=== PATIENT | male | born 1990 | race Caucasian/White ===

== ENCOUNTER 2021-04-25 19:05 | Emergency (ER) | payer MEDICAID, SELFPAY ==
[2021-04-25 19:06] VITALS: BP 142/100; PULSE 138; RESP 20; TEMP 35.9; O2SAT 97; BMI 27.8
--- NOTE | 2021-04-25 21:57 | EX.ED.DYSGE1 ---
HPI <Dr. Chris Monahan MD - Last Filed: 05/02/21 15:10> History of Present Illness Chief Complaint: GI Bleed Informant: patient Narrative Narrative: It is rather difficult getting details of the history from the patient. It takes multiple questions over time. He and his mother look back and forth and there appears to be something that they do not want to share with me or may be that one wants to share in the other does not. Primary reason for coming in is that he vomited blood today. They also want detox for heroin. Patient states he is trying to detox at home. He so he started nausea and vomiting. He vomited about 7 times last night. He did not see any blood but is not 100% sure. Today he drank milk over at his parents house. After drinking half a gallon of milk he vomited. Most of this came out as milk and curds. At the end there was bright red blood. That happened approximately 10 hours ago. There has not been another case of vomiting. He is not having abdominal pain. He does have a history of prior Celina-White tear. However, he also sounds like he may have had a transfusion. I do not know the details of this. PFSH <Dr. Chris Monahan MD - Last Filed: 05/02/21 15:10> [facility] Medical History Drug abuse Home Medications NK 04/25/21 [History Last Taken Unknown] Allergy/AdvReac Type Severity Reaction Status Date / Time No Known Allergies Allergy Verified 04/25/21 19:08 Surgical History Hx of hernia repair Surgical History no surgical history Social History Smoking Status: Unknown if ever smoked ROS <Dr. Chris Monahan MD - Last Filed: 05/02/21 15:10> ROS ED Constitutional Constitutional ED: Denies fever(s) Eyes Eyes: Denies blurry vision ENT ENT ED: Denies rhinorrhea Cardiovascular Cardiovascular: Denies chest pain or palpitations Respiratory/Chest Respiratory/Chest: Denies cough or dyspnea Gastrointestinal Gastrointestinal: Reports nausea and vomiting; Denies abdominal pain, constipation, diarrhea or melena Genitourinary Genitourinary ED: Denies dysuria Musculoskeletal Musculoskeletal: Denies arthralgias Integumentary Denies rash Neurologic Neurologic: Denies headache(s) or weakness Endocrine Endocrinology: Denies polydipsia or polyuria Allergic/Immunologic Allergic/Immunologic ED: Denies urticaria EXAM <Dr. Chris Monahan MD - Last Filed: 05/02/21 15:10> Physical Exam Const Vital Signs: 04/25/21 19:06 04/26/21 04:14 Temperature 96.7 F L Temperature Source Temporal Pulse Rate 138 H Respiratory Rate 20 H 16 Blood Pressure 142/100 H Blood Pressure Mean 114 Pulse Ox 97 Oxygen Delivery Method Room Air Room Air Positive well nourished and well developed General Appearance ED: well developed and NAD; Negative for cyanotic, diaphoretic or pallor HEENT Reports moist mucous membranes HEENT Narrative: No sign of intraoral bleeding. Eyes General Eye ED: Negative for pale conjunctiva or scleral icterus Neck no lymphadenopathy and no JVD Chest Wall inspection of chest normal Resp normal respiratory effort and clear to auscultation bilaterally Effort and Inspection: Negative for pain with movement Auscultation: Negative for rales, rhonchi or wheezes Cardio regular rhythm Rate: tachycardic GI normal to inspection, nondistended, normoactive bowel sounds, non-tender and non-distended Palpation: soft Back/Spine no CVA tenderness Extremity normal to inspection General Extremety ED: Negative for tenderness Neuro oriented x3 Sensorium / Orientation: alert Psych mental status grossly normal Skin no rashes or lesions noted General Skin Exam: Negative for pallor <Dr. North Barry MD - Last Filed: 04/26/21 04:35> Physical Exam Const Vital Signs: 04/25/21 19:06 04/26/21 04:14 Temperature 96.7 F L Temperature Source Temporal Pulse Rate 138 H Respiratory Rate 20 H 16 Blood Pressure 142/100 H Blood Pressure Mean 114 Pulse Ox 97 Oxygen Delivery Method Room Air Room Air MDM <Dr. Chris Monahan MD - Last Filed: 05/02/21 15:10> [facility] Narrative Medical decision making narrative: Are seeing the patient, the mother explained to the nurse that she is concerned about his safety. There is evidently been statements about suicide although these are not elaborated on. Patient is denying this at this time. However, he is not making great eye contact. So were concerned this might be true. Yet mother also wants him to be admitted so we do not know if this is another way to get him admitted for his detox. The entire story seems to have variability. However, we are concerned. We will have crisis see this patient. His blood work shows normal hemoglobin. He has not had recurrent vomiting. Electrolytes are overall normal. BUN is just slightly elevated. However he has been given fluids. LFTs are up a bit. Lipase is normal. Patient likely did have slight Celina-White tear. He had one episode of hematemesis. He has been given pantoprazole. His symptoms seem better. I do not have detox bed available for him. At this point, he does not need admission for medical reasons. We will have crisis see him and make final evaluation regarding these possible suicidal thoughts. Alcohol level is negative. Tox screen is still pending. Lab Data Attestation: I reviewed the patient's lab results. Labs: Laboratory Results - last 24 hr 04/25/21 04/25/21 04/26/21 22:14 22:14 00:11 WBC 9.5 RBC 5.17 Hgb 15.3 Hct 45.0 MCV 87.0 MCH 29.6 MCHC 34.0 RDW Std Deviation 39.1 RDW Coeff of Vidal 12.1 Plt Count 269 MPV 9.2 Immature Gran % (Auto) 0.200 Neut % (Auto) 57.8 Lymph % (Auto) 29.0 [place] % (Auto) 11.1 H Eos % (Auto) 1.5 Baso % (Auto) 0.4 Absolute Neuts (auto) 5.5 Absolute Lymphs (auto) 2.75 Nucleated RBC % 0 Sodium 138 Potassium 3.6 Chloride 103 Carbon Dioxide 27.0 Anion Gap 8 BUN 22 H Creatinine 0.90 Estim Creat Clear Calc 130.15 Est GFR (MDRD) Af Amer 128 Est GFR (MDRD) Non-Af 105 BUN/Creatinine Ratio 24.3 H Glucose 104 Calcium 9.6 Total Bilirubin 1.40 H AST 98 H ALT 209 H Alkaline Phosphatase 128 H Total Protein 7.6 Albumin 3.6 Globulin 4.0 Albumin/Globulin Ratio 0.9 Lipase 33 L Urine Opiates Screen Urine Methadone Screen Ur Barbiturates Screen Ur Phencyclidine Scrn Ur Amphetamines Screen U Methamphetamin-MDMA U Benzodiazepines Scrn Urine Cocaine Screen U Cannabinoids Screen Ur Drug Screen Comment Ethyl Alcohol < 3.0 04/26/21 01:56 WBC RBC Hgb Hct MCV MCH MCHC RDW Std Deviation RDW Coeff of [place] Plt Count MPV Immature Gran % (Auto) Neut % (Auto) Lymph % (Auto) [place] % (Auto) Eos % (Auto) Baso % (Auto) Absolute Neuts (auto) Absolute Lymphs (auto) Nucleated RBC % Sodium Potassium Chloride Carbon Dioxide Anion Gap BUN Creatinine Estim Creat Clear Calc Est GFR (MDRD) Af Amer Est GFR (MDRD) Non-Af BUN/Creatinine Ratio Glucose Calcium Total Bilirubin AST ALT Alkaline Phosphatase Total Protein Albumin Globulin Albumin/Globulin Ratio Lipase Urine Opiates Screen POSITIVE H Urine Methadone Screen NEGATIVE Ur Barbiturates Screen NEGATIVE Ur Phencyclidine Scrn NEGATIVE Ur Amphetamines Screen POSITIVE H U Methamphetamin-MDMA POSITIVE H U Benzodiazepines Scrn NEGATIVE Urine Cocaine Screen POSITIVE H U Cannabinoids Screen POSITIVE H Ur Drug Screen Comment Ethyl Alcohol <Dr. [place] Barry MD - Last Filed: 04/26/21 04:35> [facility] Lab Data Labs: Laboratory Results - last 24 hr 04/25/21 04/25/21 04/26/21 22:14 22:14 00:11 WBC 9.5 RBC 5.17 Hgb 15.3 Hct 45.0 MCV 87.0 MCH 29.6 MCHC 34.0 RDW Std Deviation 39.1 RDW Coeff of [place] 12.1 Plt Count 269 MPV 9.2 Immature Gran % (Auto) 0.200 Neut % (Auto) 57.8 Lymph % (Auto) 29.0 [place] % (Auto) 11.1 H Eos % (Auto) 1.5 Baso % (Auto) 0.4 Absolute Neuts (auto) 5.5 Absolute Lymphs (auto) 2.75 Nucleated RBC % 0 Sodium 138 Potassium 3.6 Chloride 103 Carbon Dioxide 27.0 Anion Gap 8 BUN 22 H Creatinine 0.90 Estim Creat Clear Calc 130.15 Est GFR (MDRD) Af Amer 128 Est GFR (MDRD) Non-Af 105 BUN/Creatinine Ratio 24.3 H Glucose 104 Calcium 9.6 Total Bilirubin 1.40 H AST 98 H ALT 209 H Alkaline Phosphatase 128 H Total Protein 7.6 Albumin 3.6 Globulin 4.0 Albumin/Globulin Ratio 0.9 Lipase 33 L Urine Opiates Screen Urine Methadone Screen Ur Barbiturates Screen Ur Phencyclidine Scrn Ur Amphetamines Screen U Methamphetamin-MDMA U Benzodiazepines Scrn Urine Cocaine Screen U Cannabinoids Screen Ur Drug Screen Comment Ethyl Alcohol < 3.0 04/26/21 01:56 WBC RBC Hgb Hct MCV MCH MCHC RDW Std Deviation RDW Coeff of [place] Plt Count MPV Immature Gran % (Auto) Neut % (Auto) Lymph % (Auto) [place] % (Auto) Eos % (Auto) Baso % (Auto) Absolute Neuts (auto) Absolute Lymphs (auto) Nucleated RBC % Sodium Potassium Chloride Carbon Dioxide Anion Gap BUN Creatinine Estim Creat Clear Calc Est GFR (MDRD) Af Amer Est GFR (MDRD) Non-Af BUN/Creatinine Ratio Glucose Calcium Total Bilirubin AST ALT Alkaline Phosphatase Total Protein Albumin Globulin Albumin/Globulin Ratio Lipase Urine Opiates Screen POSITIVE H Urine Methadone Screen NEGATIVE Ur Barbiturates Screen NEGATIVE Ur Phencyclidine Scrn NEGATIVE Ur Amphetamines Screen POSITIVE H U Methamphetamin-MDMA POSITIVE H U Benzodiazepines Scrn NEGATIVE Urine Cocaine Screen POSITIVE H U Cannabinoids Screen POSITIVE H Ur Drug Screen Comment Ethyl Alcohol Discharge Plan Triage Chief Complaint: GI Bleed ED Provider: Chris Monahan Dx/Rx/DC Orders Clinical Impression: Hematemesis, Opioid dependence, Suicidal thoughts Prescriptions: No Action NK RF: 0 Primary Care Provider: Care Physician,No Primary Referrals: Care Physician,No Primary [Primary Care Provider] - Disposition Disposition: Psychiatric Hospital or Unit Discharge Location: Other Acute Care Hospital Discharge Date/Time: 04/26/21 06:48
[2021-04-25 22:18] LABS: Absolute Lymphocyte Count 2.75 X10^3/uL (0.83-4.51); Absolute Neutrophil Count 5.5 X10^3/uL (2.0-7.7); Basophil# 0.04 X10^3/uL; Basophil% 0.4 % (0-1); Eosinophil# 0.14 X10^3/uL; Eosinophils% 1.5 % (0-5); Hemoglobin 15.3 g/dL (13.0-16.5); Lymphocyte # 2.75 X10^3/ul (0.83-4.51); Mean Corpuscular Hgb 29.6 pg (27.0-32.0); Mean Platelet Vol. 9.2 fl (6.2-12.0); Monocyte# 1.05 X10^3/uL; Monocyte% 11.1 % (0-10); NRBC Flagged by Analyzer 0 % (0-5); Neutrophil # 5.48 X10^3/uL (2.7-7.7); Neutrophil % 57.8 % (47-70); Platelet Count 269 K/mm3 (150-450); RBC Distribution Width CV 12.1 % (11.6-14.6); RBC Distribution Width SD 39.1 fl (35.1-43.9); Red Blood Count 5.17 M/mm3 (4.6-6.2); White Blood Count 9.5 K/mm3 (4.4-11.0)
[2021-04-25] MEDS: Ondansetron 4 MG/2 ML Vial IV (22:23)
[2021-04-25] MEDS: 0.9% Normal Saline 1,000 ML 1000 ML IV (22:23)
[2021-04-25 22:41] LABS: ALB/GLOB Ratio 0.9 RATIO (0.9-2.4); AST(SGOT) 98 U/L (15-37); Alanine Aminotransfer ALT/SGPT 209 U/L (16-61); Albumin, Serum 3.6 g/dL (3.2-5.0); Alkaline Phosphatase 128 U/L (45-117); Anion Gap 8 (5-15); BUN 22 mg/dL (7-18); BUN/Creat Ratio 24.3 RATIO (10-20); Calcium,Total 9.6 mg/dL (8.5-10.1); Chloride 103 mmol/L (98-107); EST Glomerular Filtration Rate 105 mL/min (>60); Est Glom Filt Rate - Afr Amer 128 mL/min (>60); Estimated Creatinine Clearance 130.15 ml/min; Glucose 104 mg/dL (74-106); Lipase 33 U/L (73-393); Potassium 3.6 mmol/L (3.5-5.1); Protein, Total 7.6 g/dL (6.4-8.2); Sodium Level 138 mmol/L (136-145)
[2021-04-26 00:50] LABS: Alcohol, Blood (Medical)-Serum < 3.0 mg/dL
[2021-04-26 02:25] LABS: Amphetamine Urine VISTA POSITIVE (<1000 ng/mL); Barbiturate Urine VISTA NEGATIVE (< 200 ng/mL); Benzodiazepine Urine VISTA NEGATIVE (< 200 ng/mL); Cocaine Urine VISTA POSITIVE (< 300 ng/mL); Ecstacy Urine VISTA POSITIVE (< 500 ng/mL); Methadone Urine VISTA NEGATIVE (< 300 ng/mL); PCP Urine VISTA NEGATIVE (< 25 ng/mL); THC Urine VISTA POSITIVE (< 50 ng/mL); Vista UDS pH Range 5
--- NOTE | 2021-04-26 02:26 | ED.RN ---
CALLED CRISIS SAID SHE WOULD BE IN AT 45 MINUTES
[2021-04-26 04:14] VITALS: RESP 16
--- NOTE | 2021-04-26 04:15 | ED.RN ---
crisis in to see patient at this time. crisis is referring patient for placement
--- NOTE | 2021-04-26 05:23 | ED.RN ---
PENDING AT [facility]
--- NOTE | 2021-04-26 06:25 | ED.RN ---
CALLED FOR THE PATIENT TO GET A RIDE, THE PATIENT WAS SUPPOSE TO GO TO [facility] IN [place]. THE PATIENT DIDN'T TELL ANYONE HE WAS COVID POSITIVE A MONTH AGO.
[2021-04-26 06:41] VITALS: BP 124/73; PULSE 89; RESP 20; TEMP 36.8; O2SAT 96
== END 2021-04-26 06:48 ==
LOC: ED 23:04
PROVIDERS: Emergency Provider Emergency Medicine
DX: R45.851 Suicidal ideations (principal); F11.20 Opioid dependence, uncomplicated; K92.0 Hematemesis; Z20.822 Contact with and (suspected) exposure to COVID-19
CPT/HCPCS: 80053; 80307; 82077; 83690; 85025; 87426; 96361; 96374; 96375; 99285; J7030; A4216; J2405; J3490